=== PATIENT | male | born 1955 | race Caucasian/White ===

== ENCOUNTER 2018-03-21 11:12 | Emergency (ER) | payer BC ==
[~2018-03-21] VITALS: Ht 167.6 cm; Wt 79.0 kg
[2018-03-21 12:15] LABS: HEMATOCRIT 42.5 % (38.0-50.0); HEMOGLOBIN 15.3 G/DL (12.5-16.6); MCH 32.7 PG (29.0-34.0); MCV 90.8 FL (86-99); PLATELET COUNT 218 K/uL (156-360); RBC DIS.WIDTH-CV 11.9 % (11.8-14.6); RED BLOOD COUNT 4.68 M/uL (4.00-5.50); WHITE BLOOD COUNT 9.3 K/uL (4.1-10.2)
[2018-03-21 12:37] LABS: CHLORIDE 103 mEq/L (99-109); POTASSIUM 4.2 mEq/L (3.7-5.4); SODIUM 140 mEq/L (136-147)
[2018-03-21 12:38] LABS: GLUCOSE 119 mg/dL (70-99)
[2018-03-21 12:42] LABS: CREATININE 1.4 mg/dL (0.6-1.3)
[2018-03-21 12:43] LABS: UREA NITROGEN (BUN) 25 mg/dL (9-23)
[2018-03-21 12:44] LABS: GFR ESTIMATE (CALCULATED) 54 mL/min/ (58.99-99999)
[2018-03-21 15:32] LABS: APPEARANCE CLEAR ((CLEAR)); BILIRUBIN NEGATIVE; BLOOD NEGATIVE; COLOR YELLOW ((YELLOW)); GLUCOSE (STRIP) NEGATIVE; KETONES 20; LEUKOCYTES NEGATIVE; NITRITE NEGATIVE; PROTEIN (STRIP) 30; SPECIFIC GRAVITY 1.029 (1.000-1.030); UCUL ADDED? NO; UROBILINOGEN 0.2 MG/DL (0.2-1.0)
[2018-03-21] MEDS ORDERED: MOTRIN800 MG PO (16:51)
[2018-03-21] MEDS ORDERED: FLOMAX0.4 MG PO (16:51)
[2018-03-21] MEDS ORDERED: ZOFRAN4 MG PO (16:51)
[2018-03-21] MEDS ORDERED: PERCOCET 5/31 TABLET PO (16:51)
[2018-03-21 17:15] VITALS: BP 137/78
== END 2018-03-21 17:15 | disposition home or self-care (01) ==
LOC: EME 11:12
DX: N13.2 Hydronephrosis with renal and ureteral calculous obstruction (principal); R11.2 Nausea with vomiting, unspecified; K44.9 Diaphragmatic hernia without obstruction or gangrene; Z87.442 Personal history of urinary calculi
CPT/HCPCS: 74176; 80048; 81003; 85027; 99281; 99285; J1885; J2405; J7120